=== PATIENT | male | born 1985 | race Caucasian/White ===

== ENCOUNTER 2017-07-17 22:23 | Emergency (ER) | payer SELFPAY ==
[~2017-07-17] VITALS: Ht 160 cm; Wt 70.0 kg
[2017-07-17] MEDS ORDERED: DEXAMETHASONE 10 MG/ML VIAL IV ONE (23:30)
[2017-07-17] MEDS ORDERED: SODIUM CHLORIDE 0.9% 1,000 ML IV ONE (23:30)
[2017-07-17] MEDS ORDERED: FAMOTIDINE 20MG/2ML VIAL IV ONE (23:30)
[2017-07-17] MEDS ORDERED: DIPHENHYDRAMINE 50MG/ML VIAL IV ONE (23:30)
[2017-07-18 04:06] VITALS: BP 138/79
== END 2017-07-18 04:10 | disposition home or self-care (01) ==
LOC: ER 22:23
DX: T78.40XA Allergy, unspecified, initial encounter (principal); L23.9 Allergic contact dermatitis, unspecified cause; L40.9 Psoriasis, unspecified
CPT/HCPCS: 96361; 96374; 96375; 99285; J1100; J1200; J3490; J7030